=== PATIENT | male | born 1945 | race Caucasian/White ===

== ENCOUNTER 2016-10-01 08:37 | Outpatient (CLI) ==
--- NOTE | 2016-10-01 09:06 | DI ---
EXAM: Two views of the right lower leg HISTORY: Pain post fall. COMPARISON: None FINDINGS: There is no lytic or blastic lesion. There is no displaced fracture or dislocation. Ther e is no abnormal periosteal reaction. Limited views of the ankle and knee are unremarkable. The so ft tissues are unremarkable. IMPRESSION: No acute abnormality of the right lower leg.
== END 2016-10-01 08:38 | disposition home or self-care (01) ==
LOC: RAD 08:37
PROVIDERS: ATTEND Family Medicine
DX: R52 Pain, unspecified (principal)